=== PATIENT | female | born 1980 ===

== ENCOUNTER 2020-12-21 08:00 | Outpatient (CLI) | payer OTHER ==
[~2020-12-21 08:00] MED LIST: PRENATAL CAPLE1 EACH PO; ZANTAC 7575 MG PO
== END 2020-12-21 08:30 | disposition home or self-care (01) ==
LOC: PPH VACUNA 08:00
DX: Z23 Encounter for immunization (principal)

== ENCOUNTER 2021-01-11 08:00 | Outpatient (CLI) | payer OTHER | END 2021-01-11 08:30 | disposition home or self-care (01) | LOC: PPH VACUNA 08:00 | DX: Z23 Encounter for immunization (principal) ==

== ENCOUNTER 2023-04-24 08:02 | Outpatient (CLI) | payer OTHER | END 2023-04-24 08:05 | disposition home or self-care (01) | LOC: PRENATAL 08:02 | PROVIDERS: ATTEND Obstetrics & Gynecology Maternal & Fetal Medicine | DX: O36.80X0 Pregnancy with inconclusive fetal viability, not applicable or unspecified (principal); Z3A.11 11 weeks gestation of pregnancy ==

== ENCOUNTER 2023-06-20 08:12 | Outpatient (CLI) | payer OTHER | END 2023-06-20 08:13 | disposition home or self-care (01) | LOC: PRENATAL 08:12 | PROVIDERS: ATTEND Obstetrics & Gynecology Maternal & Fetal Medicine | DX: O35.3XX0 Maternal care for (suspected) damage to fetus from viral disease in mother, not applicable or unspecified (principal); O09.529 Supervision of elderly multigravida, unspecified trimester; O44.00 Complete placenta previa NOS or without hemorrhage, unspecified trimester; Z3A.20 20 weeks gestation of pregnancy ==